=== PATIENT | female | born 1990 ===

== ENCOUNTER 2017-11-19 16:42 | Inpatient (IN) | payer OTHER ==
[2017-11-19 17:25] VITALS: BMI 24.3
[2017-11-19] MEDS ORDERED: Betamethasone Soluspan 30 mg/5mL Inj Susp IM ONE (17:27)
[2017-11-19] MEDS ORDERED: Lactated Ringer's 1,000 ML IV SCH ×2 (17:30)
[2017-11-19 17:57] LABS: BASO % 0.1 % (0.0-2.0); EOS # 0.1 K/uL (0.0-0.7); HEMOGLOBIN 12.5 g/dL (11.0-16.0); LYMPH # 1.7 K/uL (1.0-4.3); LYMPH % 11.9 % (20.0-40.0); MEAN CELL VOLUME 90.4 fL (81.0-99.0); MEAN CORPUSCULAR HEMOGLOBIN 30.4 pg (27.0-31.0); MEAN CORPUSCULAR HGB CONC 33.6 g/dL (33.0-37.0); MEAN PLATELET VOLUME 8.4 fL (7.2-11.7); MONO # 0.7 K/uL (0.0-0.8); MONO % 4.6 % (0.0-10.0); NEUT # 11.7 K/uL (1.8-7.0); NEUT % 82.4 % (50.0-75.0); RBC 4.12 Mil/uL (3.80-5.20); RED CELL DISTRIBUTION WIDTH 12.6 % (11.5-14.5); WHITE BLOOD COUNT 14.2 K/uL (4.8-10.8)
[2017-11-19 18:00] LABS: SQUAMOUS EPITHIAL 1 /hpf (0-5); URINE BILIRUBIN NEGATIVE (NEGATIVE); URINE BLOOD NEGATIVE (NEGATIVE); URINE CLARITY Clear (Clear); URINE COLOR Straw (YELLOW); URINE GLUCOSE (UA) NORMAL (Normal); URINE LEUKOCYTE ESTERASE NEG Leu/uL (Negative); URINE PROTEIN NEGATIVE (NEGATIVE); URINE UROBILINOGEN NORMAL mg/dL (0.2-1.0)
[2017-11-19] MEDS ORDERED: AMPicillin 2 GM in Sodium Chloride 100 ML IVPB ONE (18:00)
[2017-11-19 18:09] LABS: ALBUMIN 3.6 g/dL (3.5-5.0); ALT/SGPT 14 U/L (9-52); AST/SGOT 22 U/L (14-36); BLOOD UREA NITROGEN 6 mg/dL (7-17); CALCIUM 9.2 mg/dl (8.6-10.4); GFR AFRICAN-AMERICAN > 60; GFR NON-AFRICAN AMERICAN > 60
[2017-11-19 18:14] LABS: BARBITURATES, UR NEGATIVE (NEGATIVE); BENZODIAZEPINES, UR NEGATIVE (NEGATIVE); OPIATES, UR NEGATIVE (NEGATIVE); PHENCYCLIDINE, UR NEGATIVE (NEGATIVE)
--- NOTE | 2017-11-19 18:25 | OBHP ---
Datetime: 11/19/2017 17:40 IP Adm Impression: , intrauterine ; Active labor; Intact Membranes IP Admit Plan: Admit to unit; Initiate labor protocol Admit Comment, IP Provider: 27 y.o. , LMP 03/24/17, MAHAMED 12/29/17, EGA 34w 2d c/o stronger sensat on to "po po" since 1400 hours. First urge was at 0200 hours. Druing morning and early afternoon hour s, with this sensation, patint had several BM. After 1400 hours, urge stronger, no more fecesa passed ; by 1630 hours decided to come in for evaluation. Pain scale at that time, 8/10. Decreased mo vement since earlier in the morning. Denies LOF, VB; light pinkish vaginal discharge noted 1500 hours . care: NHCAC: denies issues, 1 hr GCT 139mg/dL. P Ob: Primip P FILLETER: 14 x monthly x 7. Denies STI, abnormal Pap PMH: denies PSH: denies NKDA Meds: PNV, calcium - QD Soc Hx: denies tobacco, illicit drug or EtOH use. x 3 years. 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 Father alive 56 y.o.; both, no med issues P.E.: as above. WD in pain with contractions. Awake, alert, oriented to time, person, and place. H usband present Assessment: 27 y.o. P0, 34w 2d, labor, near end of Stage 1 of labor. Category 1 tracing. T he administration of steroids for lung profile, IVH, NEC, as well as antibiotics for prophylaxi s against infection was discussed. It was also explained to patient, possibility of transfer of ramón rn to facility for further care may be necessary. Patient and expressed an understa nding; their questions were answered. Both are understandably nervous. Patient is clinically stable. Plan: 1) admit 2) NPO 3) IVFs 4) Continuous EFM 5) Admission labs, incl UDS and urine for culture 6) Celestone 12 mg IM x 1 7) Ampicillin 2 grams IVP x 1 now, then 1 gram Q 4 hours, until delivery 8) Notify speech clinician 9) Anticipate vaginal delivery Pelvic Type - PN: Adequate Extremities - PN: Normal Abdomen - PN: Normal Back - PN: Normal Breast - PN: Normal Lungs - PN: Normal Heart - PN: Normal Thyroid - PN: Not Done Neurologic - PN: Normal HEENT - PN: Normal General - PN: Normal Weight - Estimated: 2270 Presentation-Admit: Vertex FHR - Baseline A Provider: 145 Contraction Comments Provider: 3-4 Comments, ACOG Physical Exam: 05/2017: Rubella immune HBs Ag (-) RPR - NR Varicella immune GCT 139 mg/dL Abdomen: gravid. Firm with cotractions. Fundal height 32 cm Bedside sono for presentation confirmation - cephalic. grossly normal amnionic fluid. (+) FM All other systems reviewed and are negative Gestation - Est Wks by US: 34w 2d IP Hx Assessment: The History has been Reviewed and is Current EGA AdmitDate IP: 34.2 Vital Signs Provider: Reviewed IP Chief Complaint: Uterine contractions NICHD Variability Prov Fetus A: Moderate 6-25bpm NICHD Accel Fetus A IP Provider: 15X15 FHR Category Provider Fetus A: Category I NICHD Decel Fetus A IP Provider: None Dilatation, Provider: 9 Effacement, Provider: 100 Station, Provider: -1 Genitourinary Exam: Normal DTRs - PN: Normal
--- NOTE | 2017-11-19 18:34 | OBADHP ---
Datetime: 11/19/2017 17:40 Admit Comment, IP Provider: 27 y.o. , LMP 03/24/17, MAHAMED 12/29/17, EGA 34w 2d c/o stronger sensat on to "po po" since 1400 hours. First urge was at 0200 hours. Druing morning and early afternoon hour s, with this sensation, patint had several BM. After 1400 hours, urge stronger, no more fecesa passed ; by 1630 hours decided to come in for evaluation. Pain scale at that time, 8/10. Decreased mo vement since earlier in the morning. Denies LOF, VB; light pinkish vaginal discharge noted 1500 hours . care: NHCAC: denies issues, 1 hr GCT 139mg/dL. 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 Denies STI, abnormal Pap PMH: denies PSH: denies NKDA Meds: PNV, calcium - QD Soc Hx: denies tobacco, illicit drug or EtOH use. x 3 years. 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 Father alive 56 y.o.; both, no med issues P.E.: as above. WD in pain with contractions. Awake, alert, oriented to time, person, and place. H usband present Assessment: 27 y.o. P0, 34w 2d, labor, near end of Stage 1 of labor. Category 1 tracing. T he administration of steroids for lung profile, IVH, NEC, as well as antibiotics for prophylaxi s against infection was discussed. It was also explained to patient, possibility of transfer of ramón rn to facility for further care may be necessary. Patient and expressed an understa nding; their questions were answered. Both are understandably nervous. Patient is clinically stable. Plan: 1) admit 2) NPO 3) IVFs 4) Continuous EFM 5) Admission labs, incl UDS and urine for culture 6) Celestone 12 mg IM x 1 7) Ampicillin 2 grams IVP x 1 now, then 1 gram Q 4 hours, until delivery 8) Notify meter calibrator 9) Anticipate vaginal delivery Pelvic Type - PN: Adequate Extremities - PN: Normal Abdomen - PN: Normal Back - PN: Normal Breast - PN: Normal Lungs - PN: Normal Heart - PN: Normal Thyroid - PN: Not Done Neurologic - PN: Normal HEENT - PN: Normal General - PN: Normal Weight - Estimated: 2270 Presentation-Admit: Vertex FHR - Baseline A Provider: 145 Contraction Comments Provider: 3-4 Comments, ACOG Physical Exam: 05/2017: Rubella immune HBs Ag (-) RPR - NR Varicella immune GCT 139 mg/dL Abdomen: gravid. Firm with cotractions. Fundal height 32 cm Bedside sono for presentation confirmation - cephalic. grossly normal amnionic fluid. (+) FM All other systems reviewed and are negative Gestation - Est Wks by US: 34w 2d IP Hx Assessment: The History has been Reviewed and is Current Vital Signs Provider: Reviewed IP Chief Complaint: Uterine contractions NICHD Variability Prov Fetus A: Moderate 6-25bpm NICHD Accel Fetus A IP Provider: 15X15 FHR Category Provider Fetus A: Category I NICHD Decel Fetus A IP Provider: None Dilatation, Provider: 9 Effacement, Provider: 100 Station, Provider: -1 Genitourinary Exam: Normal DTRs - PN: Normal EGA AdmitDate IP: 34.2 IP Adm Impression: , intrauterine ; Active labor; Intact Membranes IP Admit Plan: Admit to unit; Initiate labor protocol
[2017-11-19] MEDS ORDERED: Lidocaine 2% MPF (5 ml) Inj ONE ×2 (19:53→19:56)
--- NOTE | 2017-11-19 20:27 | OBDS ---
DELIVERY PERSONNEL Delivery Doctor: Tana Pearce MD Entry Level Staff Accountant: Rhonda Magana RN MATERNAL INFORMATION Delivery Anesthesia: Local Medications in Delivery: PITOCIN Maternal Complications: None; Other Other Maternal Complications: labor with advanced dilitation on arrival to unit RN Comments: LIVE BABY GIRL Provider Comments: Patient with urge to defecate; fully dilated 1912 hours. PPROM 1916 hours Unremarkable vaginal delivery, live female , [place], compound presentation; loose nuchal cord x 1 easily reduced over head over RML episiotomy. 's mouth and nose bulb-sucitoned. Umbilical c ord doubly clamped and cut; handed to computer help desk representative in attendance. Segment of umbilical cord ob tained for cord pH analysis. Cord blood obtained. Infant's weight 5lb; 's 9/9. Spontaneous delivery of placenta - grossly intact; 3 vessel cord. Uterus explored - contracted and firm. Cervix. vagina, perineum examined - no extensions. repair as above. Mother bonded with infant. Infant to be transferred to [facility]. Mother and infant in st able condition. EBL 250 mL LABOR SUMMARY EDC: 12/29/2017 00:00 No. Babies in Womb: 1 Attempted: No Labor Anesthesia: None LABOR INFORMATION Reason for Induction: Not Applicable Onset of Labor: 11/19/2017 04:00 Complete Dilatation: 11/19/2017 19:12 Oxytocin: N/A Group B Beta Strep: Not Done Antibiotics # of Doses: 1 MEMBRANES Membranes Rupture Method: Spontaneous Rupture of Membranes: 11/19/2017 19:16 Length of Rupture (hrs): 0.15 Amniotic Fluid Color: Clear Amniotic Fluid Amount: Moderate Amniotic Fluid Odor: Normal STAGES OF LABOR Stage 1 hrs: 15 Stage 1 min: 12 Stage 2 hrs: 0 Stage 2 min: 13 Stage 3 hrs: 0 Stage 3 min: 12 Total Time in Labor hrs: 15 Total Time in Labor min: 37 VAGINAL DELIVERY Episiotomy: Right Mediolateral Laceration Extension: N/A Laceration Type: None Laceration Repair: Not Applicable Laceration Repair Note: 2-0 and 3-0 chromic - routine fashion. Hemostasis assured. Patient tolerated procedure well Sponge Count Correct: Yes Sharps Count Correct: Yes Count Comment: Correct BABY A INFORMATION Infant Delivery Date/Time: 11/19/2017 19:25 Method of Delivery: Vaginal Born in Route : No : N/A Forceps: N/A Vacuum Extraction: N/A Shoulder Dystocia : No SHOULDER DYSTOCIA BABY A Infant Delivery Date/Time: 11/19/2017 19:25 PRESENTATION/POSITION BABY A Presentation: Cephalic Cephalic Presentation: Vertex Vertex Position: Right Occipital Anterior Breech Presentation: N/A PLACENTA INFORMATION BABY A Placenta Delivery Time : 11/19/2017 19:37 Placenta Method of Delivery: Spontaneous Placenta Status: Delivered INFORMATION BABY A Gestational Age at Delivery: 34.2 Gestational Status: Outcome : Liveborn Infant Condition : Stable Infant Sex: Female IDENTIFICATION/MEDS BABY A ID Band Number: [id number] ID Band Location: Left Leg; Left Arm Sensor Applied: Yes Sensor Number: [id number] Sensor Location : Cord Clamp WEIGHT/LENGTH BABY A Birthweight (gms): 2275 Weight (lb): 5 Infant Weight (oz): 0 Infant Length Inches: 17.50 Infant Length cms: 44.5 CORD INFORMATION BABY A No. Cord Vessels: 3 Nuchal Cord : Around Neck x1, Loose Cord Blood Taken: Yes Infant Suction: Mouth; Nose ASSESSMENT BABY A Complications: None Physical Findings at Delivery: Within Normal Limits Infant Respirations: Appears Normal Wood Coater/ALS Called : Yes Care By: /PAKO MAR Transferred To: Nursery
[2017-11-19] MEDS ORDERED: AMPicillin 1 GM in Sodium Chloride 0.9% 100 ML IVPB SCH (22:00)
[2017-11-20 00:20] VITALS: O2SAT 97
[2017-11-20] MEDS: Benzocaine/Menthol 20%-0.5% Topical Spray (60 ml) TOP SCH ×2 (02:46→06:12)
[2017-11-20 08:58] LABS: BASO % 0.1 % (0.0-2.0); HEMOGLOBIN 11.4 g/dL (11.0-16.0); LYMPH # 1.5 K/uL (1.0-4.3); LYMPH % 7.4 % (20.0-40.0); MEAN CELL VOLUME 90.9 fL (81.0-99.0); MEAN CORPUSCULAR HEMOGLOBIN 30.6 pg (27.0-31.0); MEAN CORPUSCULAR HGB CONC 33.6 g/dL (33.0-37.0); MEAN PLATELET VOLUME 8.7 fL (7.2-11.7); MONO # 0.4 K/uL (0.0-0.8); MONO % 1.8 % (0.0-10.0); NEUT # 18.7 K/uL (1.8-7.0); NEUT % 90.7 % (50.0-75.0); PLATELET COUNT 232 K/uL (130-400); RBC 3.71 Mil/uL (3.80-5.20); RED CELL DISTRIBUTION WIDTH 12.7 % (11.5-14.5); WHITE BLOOD COUNT 20.6 K/uL (4.8-10.8)
[2017-11-20 09:52] LABS: BANDS 7 % (0-2); LYMPHOCYTE 10 % (20-40); MONOCYTE 3 % (0-10); NEUTROPHIL 80 % (50-75); PLATELET ESTIMATE NORMAL (NORMAL); TOTAL CELLS COUNTED 100
[2017-11-20] MEDS: Multiple Vitamins Tab PO SCH (10:59)
--- NOTE | 2017-11-20 11:57 | OBPPN ---
Datetime: 11/20/2017 11:50 PP Pain Prov: Within normal limits PP Nausea Prov: Denies PP Flatus Prov: Yes PP BM Prov: No PP Breasts Prov: Normal PP Heart Prov: Normal PP Lungs Prov: Normal PP Abdomen/Uterus Prov: Normal PP Lochia Prov: Normal PP Vulva/Perineum Prov: Normal PP CVA Tenderness Prov: Normal PP Extremities Prov: Normal PP C/S Incision Prov: Not Applicable PP Progress Prov: Not Applicable PP Comments Phys Exam Prov: Abdomen: soft. non distended. Fundus firm, mobile, non tender, at umbili cus. Minimal lochia. Episiotomy site - soft, non tender. Extremities: no calf tenderness, cyanosis, edema All other systems reviewed and are negative PP Impression Prov: Normal progression PP Plan Prov: Continue present management PP Progress Note Prov: Patient received in bed, room 459 in good spirits. Denies any pain; no nausea , vomiting. Ambulating and voiding without difficulty. in NICU at [facility] nd is there now. Per patient, is doing well. P.E.: as above. WD in NAD. Awake, alert, oriented to time, person and place. Pleasant and cooperat caroline. - Adm CBC: 14.2>12.5/37.2<226. PPD#1 20.6>11.4/33.8<232. AB(+). HIV(-) Assessment: PPD#1, 27 y.o. P0101, S/P at 34w 2d. Afebrile, vital signs stable. D/W patient pum ping of her breasts: patient is very encouraged. Elevated WBC noted; no other signs of infection. Pa tient is clinically stable. Plan: 1) Encourage pumping of breasts 2) CBC in AM 3) Encourage ambulation and p.o. fluids 4) Possible discharge home 11/21/17 Vital Signs Provider PP: Reviewed; Within Normal Limits
[2017-11-21 07:37] LABS: BASO % 0.2 % (0.0-2.0); EOS # 0.1 K/uL (0.0-0.7); EOS % 0.7 % (0.0-4.0); HEMOGLOBIN 11.7 g/dL (11.0-16.0); LYMPH % 17.9 % (20.0-40.0); MEAN CELL VOLUME 90.7 fL (81.0-99.0); MEAN CORPUSCULAR HGB CONC 34.2 g/dL (33.0-37.0); MEAN PLATELET VOLUME 7.9 fL (7.2-11.7); MONO # 0.6 K/uL (0.0-0.8); MONO % 3.4 % (0.0-10.0); NEUT % 77.8 % (50.0-75.0); RBC 3.78 Mil/uL (3.80-5.20); RED CELL DISTRIBUTION WIDTH 13.1 % (11.5-14.5); WHITE BLOOD COUNT 16.7 K/uL (4.8-10.8)
--- NOTE | 2017-11-21 07:58 | OBDCSUM ---
Datetime: 11/21/2017 07:56 Discharged to, Provider: home Follow up at, Provider: kate calderon Disch Instr Activity: Normal activity Disch Instr Diet: Regular Discharge Instructions, Provider: Routine instructions given Discharge Diagnosis, Provider: Delivery Follow up in weeks, Provider: 4-6wk Disch Activity Restrictions: No sexual activity; Nothing in vagina - [place], tampons, douche Discharge Comment, Provider: sitz baths d/w pt rx pnv otc motrin
--- NOTE | 2017-11-21 07:58 | OBPPN ---
Datetime: 11/21/2017 07:54 PP Pain Prov: Within normal limits PP Nausea Prov: Denies PP Flatus Prov: Yes PP Breasts Prov: Normal PP Heart Prov: Normal PP Lungs Prov: Normal PP Abdomen/Uterus Prov: Normal PP Extremities Prov: Normal PP Progress Prov: Not Applicable PP Impression Prov: Normal progression PP Plan Prov: Discharge PP Progress Note Prov: s: no c/o. using breastpump. denies perineal pain p: d/c home sitz baths d/w pt rx pnv otc motrin IP PP Procedures: None Vital Signs Provider PP: Within Normal Limits
[2017-11-21 08:08] VITALS: BP 102/65; PULSE 60; RESP 18; TEMP 97.2
[2017-11-21] MEDS: Multiple Vitamins Tab PO SCH (09:10)
== END 2017-11-21 14:15 | disposition home or self-care (01) | DRG 372 ==
LOC: C.EROB 16:42 → C.4D 17:23 → C.4M 22:00
PROVIDERS: ADMIT Obstetrics & Gynecology; ATTEND Obstetrics & Gynecology
PROC: 0W8NXZZ Division of Female Perineum, External Approach (ICD-10-PCS; principal; 2017-11-19)
PROC: 10E0XZZ Delivery of Products of Conception, External Approach (ICD-10-PCS; 2017-11-19)
DX: O60.14X0 Preterm labor third trimester with preterm delivery third trimester, not applicable or unspecified (principal); Z3A.34 34 weeks gestation of pregnancy; O69.81X0 Labor and delivery complicated by cord around neck, without compression, not applicable or unspecified; O36.8130 Decreased fetal movements, third trimester, not applicable or unspecified; O99.12 Other diseases of the blood and blood-forming organs and certain disorders involving the immune mechanism complicating childbirth; Z37.0 Single live birth

== ENCOUNTER 2017-11-23 11:01 | Emergency (ER) | payer OTHER ==
[2017-11-23 11:06] VITALS: BMI 22.6
--- NOTE | 2017-11-23 12:31 | C.PDOC ---
Time Seen by Provider: 11/23/17 11:21 Chief Complaint (Nursing): Abdominal Pain Past Medical History Vital Signs: Last Vital Signs Temp 98.3 F 11/23/17 11:06 Pulse 85 11/23/17 11:06 Resp 18 11/23/17 11:06 BP 96/68 L 11/23/17 11:06 Pulse Ox 97 11/23/17 11:06 - Medical History PMH: Denies: Depression, Diabetes, HTN - [facility] Procedures DELIVERY OF PRODUCTS OF CONCEPTION, EXTERNAL APPROACH (11/19/17) DIVISION OF FEMALE PERINEUM, EXTERNAL APPROACH (11/19/17) - Social History Hx Alcohol Use: No Hx Substance Use: No ED Course And Treatment O2 Sat by Pulse Oximetry: 97 Disposition - Disposition
--- NOTE | 2017-11-23 12:33 | C.PDOC ---
History Of Present Illness 27 y/o female s/p giving on 11/19/17 presents to ED with c/o epigastric abdominal pain developed today after eating breakfast associated with x1 episode of vomiting. Patient reports vaginal bleeding that is unchanged for 3 days. The patient reports that her symptoms and she has no pain or nausea at this time. Patient denies fever, chills, sob, chest pain, GI bleeding, dysuria, or any other complaints at this time. Time Seen by Provider: 11/23/17 11:21 Chief Complaint (Nursing): Abdominal Pain History Per: Patient History/Exam Limitations: no limitations Onset/Duration Of Symptoms: Days Current Symptoms Are (Timing): Gone Pain Scale Rating Of: 1 Location Of Pain/Discomfort: Epigastric Radiation Of Pain To:: None Quality Of Discomfort: "Pain" Associated Symptoms: denies: Constipation Exacerbating Factors: None Alleviating Factors: None Recent travel outside of the [place]: No Past Medical History Reviewed: Historical Data, Nursing Documentation, Vital Signs Vital Signs: Last Vital Signs Temp 98.8 F 11/23/17 14:00 Pulse 58 L 11/23/17 14:00 Resp 20 11/23/17 14:00 BP 104/62 11/23/17 14:00 Pulse Ox 99 11/23/17 14:00 - Medical History PMH: No Chronic Diseases Surgical History: No Surg Hx - [facility] Procedures DELIVERY OF PRODUCTS OF CONCEPTION, EXTERNAL APPROACH (11/19/17) DIVISION OF FEMALE PERINEUM, EXTERNAL APPROACH (11/19/17) Family History: States: No Known Family Hx - Social History Hx Tobacco Use: No Hx Alcohol Use: No Hx Substance Use: No Review Of Systems Except As Marked, All Systems Reviewed And Found Negative. Constitutional: Negative for: Fever, Chills Gastrointestinal: Positive for: Vomiting, Abdominal Pain, Other. Negative for: Nausea Genitourinary: Positive for: Vaginal Bleeding Skin: Negative for: Rash Physical Exam - Physical Exam Appears: Non-toxic, No Acute Distress Skin: Warm, Dry, No Rash Head: Atraumatic, Normacephalic Eye(s): bilateral: Normal Inspection, PERRL, EOMI Oral Mucosa: Moist Neck: Normal ROM, Supple Chest: Symmetrical, No Tenderness Cardiovascular: Rhythm Regular, No Friction Rub, No Murmur Respiratory: Normal Breath Sounds, No Rales, No Rhonchi, No Wheezing Gastrointestinal/Abdominal: Bowel Sounds (active), Soft, No Tenderness, No Guarding, No Rebound Back: Normal Inspection, No CVA Tenderness Extremity: Normal ROM, No Tenderness, No Swelling Neurological/Psych: Oriented x3, Normal Speech, Normal Cognition, Normal Motor Gait: Steady ED Course And Treatment - Laboratory Results Result Diagrams: 11/23/17 12:30 11/23/17 12:30 O2 Sat by Pulse Oximetry: 97 (RA) Pulse Ox Interpretation: Normal Medical Decision Making Medical Decision Making: labs are normal on re-exam the patient remains asymptomatic. Abdomen is soft, non-tender and the patient is tolerating PO well. Lungs are CTA, heart is RRR. Patient is ambulatory in the ED with steady gait. Follow up with the medical doctor within 1-2 days. return if worsened. Disposition - Disposition Referrals: [facility] [Outside] Disposition: HOME/ ROUTINE Disposition Time: 13:37 Condition: GOOD Additional Instructions: Follow up with the medical doctor/OBGYN within 1-2 days. Return if worsened. Instructions: Nausea and Vomiting, Adult (DC) Forms: [employer] (Mongolian) - POA Present On Arrival: None - Clinical Impression Clinical Impression: Vomiting - PA / WHEEL MOLDER / Resident Statement MD/DO has reviewed & agrees with the documentation as recorded. - Scribe Statement The provider has reviewed the documentation as recorded by the Mary Maher All medical record entries made by the Mary were at my direction and personally dictated by me. I have reviewed the chart and agree that the record accurately reflects my personal performance of the history, physical exam, medical decision making, and the department course for this patient. I have also personally directed, reviewed, and agree with the discharge instructions and disposition.
[2017-11-23 12:41] LABS: BASO % 0.2 % (0.0-2.0); EOS # 0.2 K/uL (0.0-0.7); EOS % 1.6 % (0.0-4.0); HEMOGLOBIN 11.3 g/dL (11.0-16.0); LYMPH # 1.4 K/uL (1.0-4.3); LYMPH % 13.7 % (20.0-40.0); MEAN CELL VOLUME 90.4 fL (81.0-99.0); MEAN CORPUSCULAR HEMOGLOBIN 31.3 pg (27.0-31.0); MEAN CORPUSCULAR HGB CONC 34.6 g/dL (33.0-37.0); MEAN PLATELET VOLUME 6.9 fL (7.2-11.7); MONO # 0.5 K/uL (0.0-0.8); MONO % 4.8 % (0.0-10.0); NEUT # 8.3 K/uL (1.8-7.0); NEUT % 79.7 % (50.0-75.0); RBC 3.61 Mil/uL (3.80-5.20); RED CELL DISTRIBUTION WIDTH 13.2 % (11.5-14.5); WHITE BLOOD COUNT 10.4 K/uL (4.8-10.8)
[2017-11-23 12:57] LABS: ALB/GLOB RATIO 1.1 (1.0-2.1); ALBUMIN 3.4 g/dL (3.5-5.0); ALT/SGPT 36 U/L (9-52); AST/SGOT 40 U/L (14-36); BLOOD UREA NITROGEN 14 mg/dL (7-17); CALCIUM 9.1 mg/dl (8.6-10.4); GFR AFRICAN-AMERICAN > 60; GFR NON-AFRICAN AMERICAN > 60; LIPASE 39 U/L (23-300)
[2017-11-23 14:01] VITALS: BP 104/62; PULSE 58; RESP 20; TEMP 98.8
[2017-11-24 08:39] VITALS: O2SAT 97
== END 2017-11-23 14:05 | disposition home or self-care (01) ==
LOC: C.ER 11:01
DX: R11.10 Vomiting, unspecified (principal)